=== PATIENT | female | born 2000 | race Caucasian/White ===

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

== ENCOUNTER 2019-02-04 07:15 | Day surgery (SDC) | payer OTHER ==
[~2019-02-04] VITALS: Ht 154.9 cm; Wt 78.0 kg
== END 2019-02-04 18:45 | disposition home or self-care (01) ==
LOC: ER 07:15 → CIR.AMB 10:08
DX: O02.1 Missed abortion (principal); Z3A.11 11 weeks gestation of pregnancy